=== PATIENT | female | born 1950 | race Caucasian/White ===

== ENCOUNTER 2017-04-22 05:47 | Day surgery (SDC) | payer OTHER, MEDICARE ==
[2017-04-21 14:29] VITALS: BMI 31.4
--- NOTE | 2017-04-22 09:35 | HP ---
History & Physical Update - History History: No Change - Physical Physical: No Change - Assessment Assessment: No Change - Plan Plan: No Change
[2017-04-22] MEDS ORDERED: DEXAMETHASONE SOD PHOSPHATE 4 MG/1 ML VIAL ONE (10:34)
[2017-04-22] MEDS ORDERED: PROPOFOL 20 ML ONE (10:34)
[2017-04-22] MEDS ORDERED: LIDOCAINE HCL/PF 2% SDV 5ML VIAL ONE (10:34)
[2017-04-22] MEDS ORDERED: MIDAZOLAM HCL 2 MG/2 ML SINGLE DOSE VIAL ONE (10:35)
[2017-04-22] MEDS ORDERED: KETOROLAC TROMETHAMINE 30 MG/1 ML VIAL ONE (11:00)
[2017-04-22] MEDS ORDERED: ACETAMINOPHEN 1000 MG/100 ML VIAL (NON FORMULARY) IVPB ONE (12:00)
[2017-04-22] MEDS ORDERED: ACETAMINOPHEN 1000 MG/100 ML VIAL (NON FORMULARY) IVPB PRN (12:00)
[2017-04-22] MEDS ORDERED: LACTATED RINGERS SOLUTION 1,000 ML IV SCH (12:00)
[2017-04-22] MEDS ORDERED: ONDANSETRON 4 MG/2 ML VIAL IVPUSH PRN (12:00)
[2017-04-22] MEDS ORDERED: oxyCODONE HCL 5 MG TABLET PO PRN (12:00)
[2017-04-22 14:16] VITALS: TEMP 98.4
[2017-04-22 14:23] VITALS: BP 135/73; PULSE 86
--- NOTE | 2017-04-23 11:12 | PATH ---
Surgical Pathology Report Patient Name: HAYDEE KISER [facility]. Rec. #: [id number] /Age/Gender: 1950 (Age: 66) / F Account: [id number] Location: [facility] Taken: 04/22/2017 Received: 04/22/2017 Reported: 04/23/2017 Physicians: Ximena Hyman M.D. Specimen(s) Received A: LEEP BIOPSY OF CERVIX B: ENDOMETRIAL POLYP C: ENDOMETRIAL CURETTINGS Clinical History Endometrial hyperplasia Final Diagnosis A. CERVIX, LEEP CONE EXCISION: CERVICAL MUCOSA WITH ACUTE AND CHRONIC INFLAMMATION AND REACTIVE CHANGES. NO DYSPLASIA IDENTIFIED. B. ENDOMETRIUM, POLYPECTOMY: BENIGN ENDOMETRIAL POLYP WITH CYSTIC ATROPHY. NO ENDOMETRIAL HYPERPLASIA OR CARCINOMA IDENTIFIED. C. ENDOMETRIUM, CURETTING: ENDOMETRIUM WITH CYSTIC ATROPHY. NO ENDOMETRIAL HYPERPLASIA OR CARCINOMA IDENTIFIED. Electronically Signed Rich Fisher M.D. Gross Description A. Received in formalin labeled "LEEP biopsy of cervix," is a 1.2 cm in diameter annular, unoriented portion of soft tissue, consistent with a cervical LEEP cone biopsy. The specimen is partially surfaced by a knight-pink mucosa. The specimen is inked blue, serially sectioned and entirely and sequentially submitted in 4 cassettes. B. Received in formalin labeled "endometrial polyp," are 3 pink-knight portions of soft tissue ranging from 0.7 x 0.3 x 0.2 cm to 1.1 x 0.6 x 0.2 cm. The specimens are submitted in toto in one cassette. C. Received in formalin labeled "endometrial curetting," is a 1.7 x 1.0 x 0.2 cm aggregate of knight soft tissue fragments. The formalin is filtered and the specimen is entirely submitted in one cassette. /04/22/2017 saudi04/22/2017
--- NOTE | 2017-04-23 11:33 | OP ---
DATE OF OPERATION: 04/22/2017 PREOPERATIVE DIAGNOSES: Cervical stenosis, endometrial polyp, postmenopausal bleeding. OPERATION: Loop electrosurgical excision cone, hysteroscopy, hysteroscopic myomectomy, and suction dilatation and curettage. POSTOPERATIVE DIAGNOSES: Cervical stenosis, endometrial polyp, postmenopausal bleeding. SURGEON: Ximena Hyman MD ANESTHESIA: General. ANESTHESIOLOGIST: Daiana Sherman MD DESCRIPTION OF PROCEDURE: Patient was taken to the operating room and placed in dorsal lithotomy position, prepped and draped in usual sterile fashion. A timeout was performed in accordance to hospital regulations. Speculum was placed in the vagina. Anterior lip of the cervix was grasped with a single-tooth tenaculum. Cervix was then attempted to be dilated. After much time of dilation, decision was then made to perform a LEEP on the cervix, on the ectocervix. LEEP was done and cavity was identified and a diagnostic hysteroscopy was done. Endometrial polyp was seen. Cervix was then dilated to accommodate the operative hysteroscope, where a hysteroscopic myomectomy was done on the endometrial polyp and fibroid that was in the endometrium. Suction D&C was then performed. Contents were submitted to Pathology. Estimated blood loss was about 5 mL. All instruments then removed. Patient tolerated the procedure well, was taken to recovery room in stable condition. XIMENA HYMAN M.D. [id number]
== END 2017-04-22 15:19 | disposition home or self-care (01) ==
LOC: JASU-SURG 05:47
PROVIDERS: ATTEND Obstetrics & Gynecology
PROC: 0UBC7ZX Excision of Cervix, Via Natural or Artificial Opening, Diagnostic (ICD-10-PCS; principal; 2017-04-22 10:45)
PROC: 0UB98ZZ Excision of Uterus, Via Natural or Artificial Opening Endoscopic (ICD-10-PCS; 2017-04-22 10:45)
PROC: 0UDB8ZX Extraction of Endometrium, Via Natural or Artificial Opening Endoscopic, Diagnostic (ICD-10-PCS; 2017-04-22 10:45)
DX: N88.2 Stricture and stenosis of cervix uteri (principal); N84.0 Polyp of corpus uteri; N95.0 Postmenopausal bleeding
CPT/HCPCS: 88305-TC; 88307-TC; 94760

== ENCOUNTER 2022-08-26 04:21 | Day surgery (SDC) | payer OTHER, MEDICARE ==
[2022-08-24 13:53] VITALS: BMI 34.0
[2022-08-26 07:41] VITALS: TEMP 97.7
[2022-08-26 09:39] VITALS: BP 160/84; PULSE 68; RESP 16
== END 2022-08-26 09:45 | disposition home or self-care (01) ==
LOC: JASU-ENDO 04:21
PROVIDERS: ATTEND Internal Medicine Gastroenterology
PROC: 0DB98ZX Excision of Duodenum, Via Natural or Artificial Opening Endoscopic, Diagnostic (ICD-10-PCS; 2022-08-26)
PROC: 0DB78ZX Excision of Stomach, Pylorus, Via Natural or Artificial Opening Endoscopic, Diagnostic (ICD-10-PCS; 2022-08-26)
PROC: 0DB48ZX Excision of Esophagogastric Junction, Via Natural or Artificial Opening Endoscopic, Diagnostic (ICD-10-PCS; 2022-08-26)
PROC: 0DJD8ZZ Inspection of Lower Intestinal Tract, Via Natural or Artificial Opening Endoscopic (ICD-10-PCS; principal; 2022-08-26 08:00)
DX: Z12.11 Encounter for screening for malignant neoplasm of colon (principal); K57.30 Diverticulosis of large intestine without perforation or abscess without bleeding; K64.8 Other hemorrhoids; K44.9 Diaphragmatic hernia without obstruction or gangrene; K21.00 Gastro-esophageal reflux disease with esophagitis, without bleeding; D50.9 Iron deficiency anemia, unspecified; R10.84 Generalized abdominal pain
CPT/HCPCS: 43239; G0121; 88305-TC; 88342-TC